=== PATIENT | female | born 1965 | race Caucasian/White ===

== ENCOUNTER 2019-10-19 09:30 | Outpatient (REF) | payer MEDICAID, SELFPAY ==
[2019-10-19 11:57] LABS: ALT 79 U/L (14-59); AST 39 U/L (15-37); Albumin 4.1 g/dL (3.4-5.0); Alkaline Phosphatase 73 U/L (46-116); Anion Gap 10.2 mmol/L (3-11); BUN 13 mg/dL (7-18); Bilirubin, Total 0.9 mg/dL (0.2-1.0); CO2 27.8 mmol/L (21.0-32.0); CREATININE 0.84 mg/dL (0.55-1.02); Calcium 8.6 mg/dL (8.5-10.1); Chloride 105 mmol/L (98-107); Glucose 119 mg/dL (74-106); Potassium 4.3 mmol/L (3.5-5.1); Sodium 143 mmol/L (136-145)
[2019-10-19 13:11] LABS: HCT 44.4 % (36.0-46.0); HGB 15.5 g/dL (12.0-15.5); Mean Corp. HGB Concentration 34.9 g/dL (32.0-36.0); Mean Corpuscular Hemoglobin 31.8 pg (27.0-33.0); Mean Platelet Volume 10.7 fL (8.0-11.0); Platelet Count 199 x1000/uL (130-400); RBC 4.88 m/cumm (4.00-5.20); RBC Distribution Width 13.9 % (11.7-14.6); White Blood Cell Count 5.27 k/cumm (4.4-10.8)
[2019-10-19 15:23] LABS: Calculated LDL 136 mg/dL (<100); Cholesterol 199 mg/dL (<200); HDL Cholesterol 49 mg/dL (40-60); Triglyceride 74 mg/dL (<150)
== END 2019-10-19 09:50 ==
LOC: NCHCN 09:30
PROVIDERS: PCP Family Medicine; Visit Provider Family Medicine
DX: I10 Essential (primary) hypertension (principal); G43.909 Migraine, unspecified, not intractable, without status migrainosus; E66.9 Obesity, unspecified
CPT/HCPCS: 80053; 80061; 85027

== ENCOUNTER 2022-10-29 14:03 | Outpatient (REF) | payer MEDICAID, SELFPAY ==
[2022-10-29 15:30] LABS: Anion Gap 7.6 mmol/L (3-11); BUN 15 mg/dL (7-18); CO2 29.4 mmol/L (21.0-32.0); Calcium 9.3 mg/dL (8.5-10.1); Chloride 103 mmol/L (98-107); Estimated GFR 66.12 (mL/min/1.73m2); Glucose 119 mg/dL (74-106); Potassium 3.8 mmol/L (3.5-5.1); Sodium 140 mmol/L (136-145)
== END 2022-10-29 14:04 | disposition home or self-care (01) ==
LOC: NCHCN 14:03
PROVIDERS: PCP Family Medicine; Visit Provider Family Medicine
DX: I10 Essential (primary) hypertension (principal)
CPT/HCPCS: 80048

== ENCOUNTER 2023-09-13 15:15 | Outpatient (REF) | payer MEDICAID, SELFPAY ==
[2023-09-13 16:58] LABS: Hemoglobin A1C 4.8 % (<5.7)
[2023-09-13 17:00] LABS: ALT 71 U/L (14-59); AST 59 U/L (15-37); Alkaline Phosphatase 68 U/L (46-116); Anion Gap 7.5 mmol/L (3-11); BUN 16 mg/dL (7-18); Bilirubin, Total 1.1 mg/dL (0.2-1.0); CO2 29.5 mmol/L (21.0-32.0); CREATININE 0.9 mg/dL (0.55-1.02); Calcium 9.5 mg/dL (8.5-10.1); Calculated LDL 148 mg/dL (<100); Chloride 102 mmol/L (98-107); Cholesterol 216 mg/dL (<200); Estimated GFR 74.57 (mL/min/1.73m2); Glucose 122 mg/dL (74-106); HDL Cholesterol 50 mg/dL (40-60); Potassium 3.8 mmol/L (3.5-5.1); Sodium 139 mmol/L (136-145); Total Protein 7.7 g/dL (6.4-8.2); Triglyceride 91 mg/dL (<150)
== END 2023-09-13 15:16 | disposition home or self-care (01) ==
LOC: NCHCN 15:15
PROVIDERS: PCP Family Medicine; Visit Provider Family Medicine
DX: I10 Essential (primary) hypertension (principal); R79.89 Other specified abnormal findings of blood chemistry; R73.09 Other abnormal glucose; E66.8 Other obesity
CPT/HCPCS: 80053; 80061; 83036

== ENCOUNTER 2024-03-23 15:26 | Outpatient (REF) | payer MEDICAID, SELFPAY ==
[2024-03-23 15:29] LABS: Uric Acid 8.9 mg/dL (2.6-6.0)
== END 2024-03-23 15:27 | disposition home or self-care (01) ==
LOC: NCHCN 15:26
PROVIDERS: PCP Family Medicine; Visit Provider Family Medicine
DX: M10.9 Gout, unspecified (principal)
CPT/HCPCS: 84550

== ENCOUNTER 2024-09-10 19:01 | Outpatient (REF) | payer MEDICAID, SELFPAY | END 2024-09-10 19:02 | disposition home or self-care (01) | LOC: NCHCN 19:01 | PROVIDERS: PCP Family Medicine; Visit Provider Family Medicine | DX: L03.032 Cellulitis of left toe (principal) | CPT/HCPCS: 87077; 87070; 87186; 87205 ==

== ENCOUNTER 2025-04-26 15:56 | Outpatient (REF) | payer MEDICAID, SELFPAY ==
[2025-04-26 15:18] LABS: HCT 39.3 % (36.0-46.0); HGB 14.0 g/dL (11.2-15.7); MCH 32.8 pg (27.0-33.0); MCHC 35.6 % (32.0-36.0); MCV 92 fL (80-95); MPV 10.5 fL (8.0-11.0); Platelet Count 192 10^3/uL (130-400); RBC 4.27 10^6/uL (3.93-5.22); RDW 13.1 % (11.7-14.6); RDW-SD 44.1 fL; WBC 3.82 10^3/uL (4.4-10.8)
[2025-04-26 15:55] LABS: ALT 54 U/L (14-59); AST 35 U/L (15-37); Albumin 4.1 g/dL (3.4-5.0); Alkaline Phosphatase 83 U/L (46-116); Anion Gap 10.2 mmol/L (3-11); BUN 19 mg/dL (7-18); Bilirubin, Total 0.7 mg/dL (0.2-1.0); CO2 28.8 mmol/L (21.0-32.0); Calcium 9.4 mg/dL (8.5-10.1); Calculated LDL 138 mg/dL (<100); Chloride 103 mmol/L (98-107); Cholesterol 208 mg/dL (<200); Estimated GFR 74.10 (mL/min/1.73m2); Glucose 120 mg/dL (74-106); HDL Cholesterol 41 mg/dL (>or=50); Potassium 3.8 mmol/L (3.5-5.1); Sodium 142 mmol/L (136-145); Total Protein 6.9 g/dL (6.4-8.2); Triglyceride 146 mg/dL (<150); Uric Acid 7.8 mg/dL (2.6-6.0)
[2025-04-26 16:17] LABS: Hemoglobin A1C 4.8 % (<5.7)
== END 2025-04-26 15:57 | disposition home or self-care (01) ==
LOC: NCHCN 15:56
PROVIDERS: PCP Family Medicine; Visit Provider Family Medicine
DX: Z00.00 Encounter for general adult medical examination without abnormal findings (principal); M10.9 Gout, unspecified; E66.9 Obesity, unspecified
CPT/HCPCS: 80053; 80061; 85027; 83036; 84550